=== PATIENT | female | born 1945 | race Caucasian/White ===

== ENCOUNTER 2016-05-27 17:30 | Emergency (ER) | payer MEDICARE ==
[~2016-05-27] VITALS: Ht 152.4 cm; Wt 103.0 kg
[~2016-05-27 17:30] MED LIST: ALPR-138 PO
[2016-05-27 17:36] VITALS: BP 149/54; PULSE 160; RESP 18; TEMP 97.6; O2SAT 98
[2016-05-27] MEDS ORDERED: SODIUM CHLORIDE 0.9% FLUSH 5 ML FLUSH IVF PRN (18:00)
[2016-05-27 18:01] VITALS: BP 139/67; PULSE 110; RESP 15; O2SAT 100
[2016-05-27] MEDS ORDERED: LEVO.05 PO (18:03)
[2016-05-27] MEDS ORDERED: chemotherapy PO (18:03)
[2016-05-27] MEDS ORDERED: ADVA250A INH (18:03)
--- NOTE | 2016-05-27 18:20 | RADRPT ---
EXAM DATE/TIME: 05/27/2016 18:07 [facility] COMPARISON: No previous studies available for comparison. INDICATIONS : Chest pain. MEDICAL HISTORY : Multiple myeloma. Renal failure. Dialysis. SURGICAL HISTORY : Dialysis catheter. ENCOUNTER: Initial ACUITY: 1 day PAIN SCORE: 7/10 LOCATION: Bilateral chest FINDINGS: A single view of the chest demonstrates the lungs to be symmetrically aerated without evidence of mas s, infiltrate or effusion. The cardiomediastinal contours are unremarkable. Osseous structures are intact. Right-sided vascular tunnel catheter with tip in the SVC. CONCLUSION: No acute disease. Right-sided vascular tunnel catheter. Brent Conrad MD on May 27, 2016 at 18:18 Board Certified Radiologist. This report was verified electronically.
[2016-05-27 18:25] LABS: AUTOMATED NEUTROPHIL # 3.3 TH/MM3 (1.8-7.7); BASOPHIL % 0.2 % (0.0-2.0); EOSINOPHIL % 0.2 % (0.0-4.0); HEMATOCRIT 21.1 % (35.0-46.0); HEMO FLAGS DIFF FINAL; LYMPH % 3.5 % (9.0-44.0); LYMPHOCYTE # 0.1 TH/MM3 (1.0-4.8); MEAN CORPUSCULAR HEMOGLOBIN 30.9 PG (27.0-34.0); MEAN CORPUSCULAR HGB CONC 33.2 % (32.0-36.0); MONO % 10.9 % (0.0-8.0); NEUT % 85.2 % (16.0-70.0); PLATELET COUNT 103 TH/MM3 (150-450); RED BLOOD COUNT 2.27 MIL/MM3 (4.00-5.30); RED CELL DISTRIBUTION WIDTH 18.1 % (11.6-17.2); WHITE BLOOD COUNT 3.9 TH/MM3 (4.0-11.0)
[2016-05-27 18:43] LABS: BICARBONATE 20.5 MEQ/L (21.0-32.0); MAGNESIUM 2.4 MG/DL (1.5-2.5); POTASSIUM 4.2 MEQ/L (3.5-5.1)
--- NOTE | 2016-05-27 18:44 | PD ---
HPI Chief Complaint: fast heart rate Time Seen by Provider: 17:53 Travel History International Travel<30 days: No Contact w/Intl Traveler<30days: No Traveled to known affect area: No History of Present Illness HPI 71-year-old female states she has been feeling weak and having difficulty moving due to the weakness. She is sent here from dialysis. Her heart rate in triage was in the 160s by initial report. On the monitor she currently is 110. She denies other complaints other than generalized weakness. Quality is feeling tired all over. Severity is worsening. Duration is past couple of days. She states Dr. Taylor is her dyeing machine tender. She states Dr. White is her primary care physician. FORMERLY [facility], [facility] Past Medical History Asthma: Yes Cancer: Yes (mult. myeolomia) Chemotherapy: Yes (LAST WEEK) Dialysis: Yes (start 03/01) Diminished Hearing: No Respiratory: Yes (ASTHMA) Influenza Vaccination: No (allergic ) Menopausal: Yes : 3 Para: 2 Miscarriage: 1 : 0 Dilation and Curettage (D&C): Yes (X 2; &) Past Surgical History Tonsillectomy: Yes Other Surgery: Yes (CYST REMOVED FROM NECK) Social History Alcohol Use: No Tobacco Use: No Substance Use: No Allergies-Medications (Allergen,Severity, Reaction): Coded Allergies: Egg Allergy (Verified Allergy, Severe, 05/05/16) Peanut Oil (Verified Allergy, Severe, 05/05/16) Aspirin (Verified Allergy, Intermediate, 05/05/16) Codeine (Verified Allergy, Intermediate, 05/05/16) Penicillin (Verified Allergy, Intermediate, 05/05/16) Shellfish (Verified Allergy, Intermediate, 05/05/16) Sulfa (Verified Allergy, Intermediate, 05/05/16) Reported Meds & Prescriptions Reported Meds & Active Scripts Active Reported [chemotherapy] 1 Tab PO DAILY Synthroid (Levothyroxine Sodium) 50 Mcg Tab 50 Mcg PO DAILY Advair Diskus Inh (Fluticasone-Salmeterol Inh) 250-50 Mcg/Blist Aer 1 Puff INH BID Rinse mouth after use. Review of Systems Except as stated in HPI: all other systems reviewed are Neg Physical Exam Narrative GENERAL: Well-nourished, well-developed patient. SKIN: Warm and dry. HEAD: Normocephalic and atraumatic. EYES: No injection or drainage. ENT: No nasal drainage noted. NECK: Supple, trachea midline. CARDIOVASCULAR: Tachycardic rate and regular rhythm RESPIRATORY: No increased effort. No accessory muscle use. GASTROINTESTINAL: Abdomen soft, non-tender, nondistended. EXTREMITIES: No edema. NEUROLOGICAL: Awake and alert. Moves all extremities. Normal speech. Data Data Last Documented VS Vital Signs Date Time Temp Pulse Resp B/P Pulse Ox O2 Delivery O2 Flow Rate FiO2 05/27/16 18:01 110 15 139/67 100 Room Air 05/27/16 17:36 97.6 Orders Electrocardiogram (05/27/16 17:57) Basic Metabolic Panel (Bmp) (05/27/16 17:57) Ckmb (Isoenzyme) Profile (05/27/16 17:57) Complete Blood Count With Diff (05/27/16 17:57) Magnesium (Mg) (05/27/16 17:57) Prothrombin Time / Inr (Pt) (05/27/16 17:57) Act Partial Throm Time (Ptt) (05/27/16 17:57) Troponin I (05/27/16 17:57) Chest, Single Ap (05/27/16 17:57) Ecg Monitoring (05/27/16 17:57) Bilateral Bp Monitoring (05/27/16 17:57) Iv Access Insert/Monitor (05/27/16 17:57) Oximetry (05/27/16 17:57) Sodium Chloride 0.9% Flush (Ns Flush) (05/27/16 18:00) Red Blood Cells (Rbc) (05/27/16 18:38) Sodium Chlor 0.9% 250 Ml Inj (Ns 250 Ml (05/27/16 18:45) Type And Screen (05/27/16 18:38) CKMB (05/27/16 18:15) CKMB% (05/27/16 18:15) Labs Laboratory Tests Test 05/27/16 18:15 White Blood Count 3.9 TH/MM3 Red Blood Count 2.27 MIL/MM3 Hemoglobin 7.0 GM/DL Hematocrit 21.1 % Mean Corpuscular Volume 93.0 FL Mean Corpuscular Hemoglobin 30.9 PG Mean Corpuscular Hemoglobin 33.2 % Concent Red Cell Distribution Width 18.1 % Platelet Count 103 TH/MM3 Mean Platelet Volume 10.1 FL Neutrophils (%) (Auto) 85.2 % Lymphocytes (%) (Auto) 3.5 % Monocytes (%) (Auto) 10.9 % Eosinophils (%) (Auto) 0.2 % Basophils (%) (Auto) 0.2 % Neutrophils # (Auto) 3.3 TH/MM3 Lymphocytes # (Auto) 0.1 TH/MM3 Monocytes # (Auto) 0.4 TH/MM3 Eosinophils # (Auto) 0.0 TH/MM3 Basophils # (Auto) 0.0 TH/MM3 CBC Comment DIFF FINAL Differential Comment Prothrombin Time 10.7 SEC Prothromb Time International 1.0 RATIO Ratio Activated Partial 24.7 SEC Thromboplast Time Sodium Level 141 MEQ/L Potassium Level 4.2 MEQ/L Chloride Level 107 MEQ/L Carbon Dioxide Level 20.5 MEQ/L Anion Gap 14 MEQ/L Blood Urea Nitrogen 116 MG/DL Creatinine 5.65 MG/DL Estimat Glomerular Filtration 7 ML/MIN Rate Random Glucose 97 MG/DL Calcium Level 8.3 MG/DL Magnesium Level 2.4 MG/DL Total Creatine Kinase 194 U/L Troponin I 0.05 NG/ML [facility] Medical Decision Making Medical Screen Exam Complete: Yes Emergency Medical Condition: Yes Medical Record Reviewed: Yes (past history confirmed) Interpretation(s) CBC & BMP Diagram 05/27/16 18:15 Differential Diagnosis A. fib with RVR, SVT, anemia, renal failure, electrolyte abnormality..... Narrative Course Will check blood work, chest x-ray and reevaluate EKG is not atrial fibrillation it is sinus tachycardia and hemoglobin is 7.0. We'll discuss with her dyeing machine tender to coordinate transfusion. Patient denies any active bleeding but not wanting to stay dr hartley came to the ER and saw patient and she still is not willing to stay, nurse and friend at bedside patient is leaving AMA: The risks of leaving against medical advice without further evaluation treatment were discussed with the patient. These risks include cardiac dysfunction, cardiac dysrhythmia, possible heart attack, possible stroke or . The patient indicated understanding of these risks and appeared to have the capacity to make this decision alert and oriented 4. Physician Communication Physician Communication dr hartley agrees patient needs admit and transfusion with dialysis but patient told him she is leaving ama Diagnosis Primary Impression: Anemia Qualified Code: D64.9 - Anemia, unspecified type Additional Impression: Fluid overload Qualified Code: E87.70 - Hypervolemia, unspecified hypervolemia type Disposition: 07 AGAINST MEDICAL ADVICE Condition: Marta Rosas MD May 27, 2016 18:44
[2016-05-27] MEDS ORDERED: SODIUM CHLOR 0.9% 250 ML INJ 250 ML IV ONE (18:45)
[2016-05-27 18:50] LABS: APTT (PATIENT) 24.7 SEC (24.3-30.1); PROTHROMBIN TIME - PATIENT 10.7 SEC (9.8-11.6)
[2016-05-27 19:02] LABS: CKMB 15.4 NG/ML (0.5-3.6)
== END 2016-05-27 19:28 | disposition left against medical advice (07) ==
LOC: NEPE 17:30
DX: E87.70 Fluid overload, unspecified (principal); D64.9 Anemia, unspecified; J45.909 Unspecified asthma, uncomplicated; R53.1 Weakness; R00.0 Tachycardia, unspecified; C90.00 Multiple myeloma not having achieved remission; Z99.2 Dependence on renal dialysis
CPT/HCPCS: 71010; 80048; 82550; 82552; 83735; 84484; 85025; 85610; 85730

== ENCOUNTER → 2016-07-08 | Outpatient (CLI) | payer MEDICARE ==
[~2016-07-08] MED LIST changes: +ACYC1POW8; +ADVA250A INH; -ALPR-138 PO; +ALPR0.25 PO; +CYCL1CAP4 PO; +DEXA4TAB PO; +FURO1TAB60 PO; +KAYEPOW PO; +LACTCAP8 PO; +LEVO.05 PO; +ZOFR4TAB PO; +chemotherapy PO
[2016-07-08 10:44] LABS: HEMATOCRIT 33.2 % (35.0-46.0); MEAN CELL VOLUME 99.8 FL (80.0-100.0); MEAN CORPUSCULAR HEMOGLOBIN 32.7 PG (27.0-34.0); MEAN CORPUSCULAR HGB CONC 32.8 % (32.0-36.0); PLATELET COUNT 240 TH/MM3 (150-450); RED BLOOD COUNT 3.33 MIL/MM3 (4.00-5.30); RED CELL DISTRIBUTION WIDTH 20.4 % (11.6-17.2); REVIEW FLAG FINAL; WHITE BLOOD COUNT 5.9 TH/MM3 (4.0-11.0)
[2016-07-08 10:53] LABS: BICARBONATE 27.3 MEQ/L (21.0-32.0)
--- NOTE | 2016-07-08 11:47 | RADRPT ---
EXAM DATE/TIME: 07/08/2016 10:54 [facility] COMPARISON: CHEST SINGLE AP, May 27, 2016, 18:07. INDICATIONS : Evaluate for pneumonia, pneumothorax, or communicable disease. MEDICAL HISTORY : Renal insufficiency. Left arm AV fistula, hypotension, SURGICAL HISTORY : Port. ENCOUNTER: Initial ACUITY: 1 day PAIN SCORE: 0/10 LOCATION: Left chest FINDINGS: Right chest dialysis catheter is present in stable satisfactory position. The lungs remain hyperinfla neo but focally clear. No pleural effusion suspected. Cardiomediastinal contours are stable and [employer]. There is moderate accentuation of thoracic kyphosis and degenerative change noted in the spi ne. CONCLUSION: Stable chest appearance. No acute disease Corbin Summers MD on July 08, 2016 at 11:44 Board Certified Radiologist. This report was verified electronically.
--- NOTE | 2016-07-08 21:43 | EKG ---
Date Performed: 07/08/2016 Time Performed: 10:21:58 PTAGE: 71 years EKG: Sinus rhythm MARKED LEFT AXIS DEVIATION ABNORMAL ECG Compared to prior tracing no significant change DOCTOR: Mirtha Petersen Interpretating Date/Time 07/08/2016 21:41:45
== END ==
LOC: CPRE 09:52
PROVIDERS: ATTEND Surgery
DX: Z01.810 Encounter for preprocedural cardiovascular examination (principal); Z01.811 Encounter for preprocedural respiratory examination; Z01.812 Encounter for preprocedural laboratory examination
CPT/HCPCS: 36415; 71020; 80048; 85027; 93005

== ENCOUNTER → 2016-07-20 | Day surgery (SDC) | payer MEDICARE ==
[~2016-07-20] VITALS: Ht 154.9 cm; Wt 55.3 kg
[~2016-07-20] MED LIST changes: +BUPIVACAINE/EPINEPHRINE 0.25% PF 30 ML VIAL INFIL ONE; +FAMOTIDINE 20 MG/2 ML VIAL ONE; +GELFOAM SIZE 100 ONE; +HEPARIN SODIUM - IV 10,000 UNITS/10 ML VIAL ONE; +HEPARIN SODIUM - SQ 10,000 UNITS/ML VIAL ONE; +INSULIN HUMAN REGULAR 1,000 UNITS/10 ML VIAL SQ PRN; +LACTATED RINGER'S 1000 ML IV SCH; +METOPROLOL TARTRATE 25 MG TAB PO PRN; +MIDAZOLAM HCL 2 MG/2 ML VIAL ONE; +PROPOFOL 200 MG/20 ML AMP IV ONE; +PROTAMINE SULFATE 50 MG/5 ML VIAL ONE; +SODIUM CHLOR 0.9% 250 ML INJ 250 ML ONE; +SODIUM CHLORID 0.9% 500 ML IV SCH; +THROMBIN (TOPICAL) 5,000 UNIT VIAL ONE; +VANCOMYCIN HCL 1000 MG VIAL ONE; -chemotherapy PO; +fentaNYL CITRATE 250 MCG/5 ML AMP ONE
[2016-07-20 10:10] VITALS: BP 122/69; PULSE 102; RESP 16; TEMP 98.6; O2SAT 99
--- NOTE | 2016-07-20 13:45 | MP ---
cc: IGLESIA HAGEN DATE OF SURGERY: 07/20/2016 PREOPERATIVE DIAGNOSIS History of end-stage renal disease. POSTOPERATIVE DIAGNOSIS History of end-stage renal disease. PROCEDURE Left upper extremity proximal radiocephalic AV fistula creation. SURGEON Balwinder IV FLUIDS 500 cc. ANESTHESIA MAC and local, 20 cc of 0.25% Marcaine with epinephrine. ESTIMATED BLOOD LOSS Less than 50 cc. URINE OUTPUT Not calculated. COMPLICATIONS None. DISPOSITION To PACU. DETAILS OF PROCEDURE The patient's left upper extremity was prepped in a sterile fashion once under MAC anesthesia. The patient did get perioperative IV vancomycin because of an allergy to penicillin. I ultrasounded the patient's left upper extremity and found that the cephalic vein appeared to be the most appropriate vein for creation of AV fistula based on the diameter. The antecubital vein was close to the radial and ulnar bifurcation just below the antecubital fossae. I made an incision with a scalpel and electrocautery. I dissected down with Metzenbaum scissors and isolated the cephalic and antecubital vein. It should be noted that I marked the vein along its course with a dye marker. I tied off side branches with 2-0 and 3-0 silks and small and medium clips as needed. I isolated the brachial, radial and ulnar arteries. It should be noted that once I isolated the radial and ulnar artery just distal to their takeoff below the antecubital fossa in the brachial artery I then gave the patient 3000 units of heparin. I divided the antecubital vein. It should be noted that it did insufflate appropriately with injection. I used an 11 blade and Farooq scissors to make my arteriotomy in the proximal radial artery. I placed vessel loops around the ulnar and brachial artery and used a pediatric profunda clamp for distal control of the radial artery. I performed an anastomosis with 5-0 Prolene in a running continuous fashion. Afterwards I did use one 6-0 Prolene for the correction stitch. There was a good thrill in the cephalic vein. I did clip off two side branches as I mobilized it. It should be noted that afterwards the thrill improved slightly. The patient had a palpable radial artery distally and ulnar artery signal distally with a good signal in the palmar arch. I closed in layers with 2-0 Vicryl for 4-0 Monocryl with Dermabond. DO SHARMIN Puente /1:03 PM /1:32 PM
[2016-07-20 14:11] VITALS: BP 119/67; PULSE 93; RESP 16; TEMP 98.8; O2SAT 99
== END | disposition home or self-care (01) ==
LOC: HSDC 09:28
PROVIDERS: ATTEND Surgery
DX: N18.6 End stage renal disease (principal); J45.909 Unspecified asthma, uncomplicated; Z88.0 Allergy status to penicillin
CPT/HCPCS: 01844; 36818; 76937; 86850; 86900; 86901; J1644; J2250; J3010; J3370; J7040; J7050; J2720

== ENCOUNTER 2016-09-08 09:39 | Emergency (ER) | payer MEDICARE ==
[~2016-09-08] VITALS: Ht 154.9 cm; Wt 57.0 kg
[~2016-09-08 09:39] MED LIST changes: -ACYC1POW8; -ALPR0.25 PO; -BUPIVACAINE/EPINEPHRINE 0.25% PF 30 ML VIAL INFIL ONE; -CYCL1CAP4 PO; -DEXA4TAB PO; -FAMOTIDINE 20 MG/2 ML VIAL ONE; -FURO1TAB60 PO; -GELFOAM SIZE 100 ONE; -HEPARIN SODIUM - IV 10,000 UNITS/10 ML VIAL ONE; -HEPARIN SODIUM - SQ 10,000 UNITS/ML VIAL ONE; -INSULIN HUMAN REGULAR 1,000 UNITS/10 ML VIAL SQ PRN; -KAYEPOW PO; -LACTATED RINGER'S 1000 ML IV SCH; -LACTCAP8 PO; -METOPROLOL TARTRATE 25 MG TAB PO PRN; -MIDAZOLAM HCL 2 MG/2 ML VIAL ONE; -PROPOFOL 200 MG/20 ML AMP IV ONE; -PROTAMINE SULFATE 50 MG/5 ML VIAL ONE; -SODIUM CHLOR 0.9% 250 ML INJ 250 ML ONE; -SODIUM CHLORID 0.9% 500 ML IV SCH; -THROMBIN (TOPICAL) 5,000 UNIT VIAL ONE; -VANCOMYCIN HCL 1000 MG VIAL ONE; -ZOFR4TAB PO; -fentaNYL CITRATE 250 MCG/5 ML AMP ONE
[2016-09-08 09:44] VITALS: BP 181/85; PULSE 75; RESP 17; TEMP 98.2; O2SAT 99
[2016-09-08] MEDS ORDERED: ACYC1POW8 (10:02)
[2016-09-08] MEDS ORDERED: ALPR0.25 PO (10:02)
[2016-09-08] MEDS ORDERED: DEXA4TAB PO (10:02)
[2016-09-08] MEDS ORDERED: FURO1TAB60 PO (10:02)
[2016-09-08] MEDS ORDERED: CYCL1CAP4 PO (10:02)
[2016-09-08] MEDS ORDERED: ZOFR4TAB PO (10:04)
[2016-09-08] MEDS ORDERED: LACTCAP8 PO (10:04)
[2016-09-08] MEDS ORDERED: ACETAMINOPHEN 500 MG CPLT PO ONE (10:30)
[2016-09-08 10:46] LABS: BASOPHIL % 0.3 % (0.0-2.0); EOSINOPHIL % 0.2 % (0.0-4.0); HEMATOCRIT 37.5 % (35.0-46.0); HEMO FLAGS DIFF FINAL; LYMPH % 2.6 % (9.0-44.0); LYMPHOCYTE # 0.2 TH/MM3 (1.0-4.8); MEAN CELL VOLUME 105.4 FL (80.0-100.0); MEAN CORPUSCULAR HEMOGLOBIN 35.4 PG (27.0-34.0); MEAN CORPUSCULAR HGB CONC 33.6 % (32.0-36.0); MONO % 3.5 % (0.0-8.0); NEUT % 93.4 % (16.0-70.0); PLATELET COUNT 164 TH/MM3 (150-450); RED BLOOD COUNT 3.56 MIL/MM3 (4.00-5.30); RED CELL DISTRIBUTION WIDTH 17.9 % (11.6-17.2); WHITE BLOOD COUNT 8.5 TH/MM3 (4.0-11.0)
--- NOTE | 2016-09-08 10:57 | RADRPT ---
EXAM DATE/TIME: 09/08/2016 10:31 [facility] COMPARISON: No previous studies available for comparison. INDICATIONS : Back pain. Evaluate for renal stones. ORAL CONTRAST: No oral contrast ingested. RADIATION DOSE: 13.28 CTDIvol (mGy) MEDICAL HISTORY : Renal failure, chronic. Multiple myeloma. SURGICAL HISTORY : None. ENCOUNTER: Initial ACUITY: 2 days PAIN SCALE: 5/10 LOCATION: Right flank TECHNIQUE: Volumetric scanning of the abdomen and pelvis was performed. Using automated exposure control and ad justment of the mA and/or kV according to patient size, radiation dose was kept as low as reasonably achievable to obtain optimal diagnostic quality images. FINDINGS: LOWER LUNGS: The visualized lower lungs are clear. LIVER: Homogeneous density without lesion. There is no dilation of the biliary tree. No calcified gallston es. SPLEEN: Normal size without lesion. PANCREAS: Within normal limits. KIDNEYS: Normal in size and shape. There is no mass or hydronephrosis. There are multiple small bilateral rik al calculi. On the right there are at least 5 or 6 small 1-2 mm calculi. On the left there are is a s jatinder 3 mm area of calcification. The ureters are unremarkable. ADRENAL GLANDS: Within normal limits. VASCULAR: There is no aortic aneurysm. BOWEL/MESENTERY: The stomach, small bowel, and colon demonstrate no acute abnormality. There is no free intraperitone al air or fluid. ABDOMINAL WALL: Within normal limits. RETROPERITONEUM: There is no lymphadenopathy. BLADDER: No wall thickening or mass. REPRODUCTIVE: Within normal limits. INGUINAL: There is no lymphadenopathy or hernia. MUSCULOSKELETAL: Within normal limits for patient age. CONCLUSION: Multiple small bilateral nonobstructing renal calculi. Eddie Reeves MD on September 08, 2016 at 10:49 Board Certified Radiologist. This report was verified electronically.
[2016-09-08 11:02] LABS: ALT (GPT) 20 U/L (10-53); ANION GAP 14 MEQ/L (5-15); AST (GOT) 17 U/L (15-37); BICARBONATE 24.1 MEQ/L (21.0-32.0); BLOOD UREA NITROGEN 87 MG/DL (7-18); CHLORIDE 99 MEQ/L (98-107); POTASSIUM 6.3 MEQ/L (3.5-5.1); SODIUM (NA) 137 MEQ/L (136-145)
[2016-09-08 11:05] LABS: ALKALINE PHOSPHATASE 53 U/L (45-117); GLOMERULAR FILTRATION RATE 6 ML/MIN (>89); TOTAL BILIRUBIN ADULT 0.4 MG/DL (0.2-1.0)
[2016-09-08 11:13] VITALS: BP 187/81; PULSE 77; RESP 16; O2SAT 99
[2016-09-08 11:37] LABS: BACTERIA, URINE RARE /hpf; BLOOD, URINE TRACE (NEG); GLUCOSE,URINE NEG (NEG); KETONE, URINE NEG (NEG); NITRITE,URINE NEG (NEG); PH, URINE 6.5 (5.0-8.5); SQUAMOUS EPITHELIAL CELL URINE <1 /hpf (0-5); URINE COLOR LIGHT-YELLOW (YELLW/STRAW)
--- NOTE | 2016-09-08 11:37 | PD ---
HPI Chief Complaint: Back/ Neck Pain or Injury Time Seen by Provider: 10:02 Travel History International Travel<30 days: No Contact w/Intl Traveler<30days: No Traveled to known affect area: No History of Present Illness HPI This is a 71-year-old female who has a history of end-stage renal disease on dialysis who presents to the emergency department with right sided back pain, intermittent for several days and more severe today, sharp, with no associated vomiting, fevers, chills, hematuria or dysuria. She has had some diarrhea several days ago. She did not go to dialysis on Wednesday because of her diarrhea. She is due to go to dialysis at 2 PM today. PFSH Past Medical History Asthma: Yes Cancer: Yes (BLOOD) Cardiovascular Problems: No Chemotherapy: Yes (LAST WEEK) Diabetes: No Dialysis: Yes (start 03/01) Diminished Hearing: No Endocrine: No Genitourinary: No Hepatitis: No Hiatal Hernia: No Immune Disorder: No Musculoskeletal: Yes (LEG WEAKNESS) Neurologic: No Psychiatric: No Reproductive: No Respiratory: Yes (ASTHMA) Thyroid Disease: Yes Tetanus Vaccination: < 5 Years Influenza Vaccination: No ?: Not Menopausal: Yes : 3 Para: 2 Miscarriage: 1 : 0 Dilation and Curettage (D&C): Yes (X 2; &) Past Surgical History Abdominal Surgery: No AICD: No Body Medical Devices: PORT RIGHT SHOULDER Cardiac Surgery: No Ear Surgery: No Endocrine Surgery: No Eye Surgery: No Genitourinary Surgery: No Gynecologic Surgery: Yes (D&C) Joint Replacement: No Oral Surgery: Yes (TONSILS) Pacemaker: No Thoracic Surgery: Yes (PORT RIGHT SHOULDER) Tonsillectomy: Yes Other Surgery: Yes (CYST REMOVED FROM NECK) Social History Alcohol Use: No Tobacco Use: No Substance Use: No Allergies-Medications (Allergen,Severity, Reaction): Coded Allergies: Egg Allergy (Verified Allergy, Severe, 09/08/16) EGG ALBUMIN, PATIENT CAN EAT EGGS BUT CAN NOT HAVE FLU SHOT. Peanut Oil (Verified Allergy, Severe, 09/08/16) Aspirin (Verified Allergy, Intermediate, 09/08/16) Codeine (Verified Allergy, Intermediate, 09/08/16) Penicillin (Verified Allergy, Intermediate, 09/08/16) Shellfish (Verified Allergy, Intermediate, 09/08/16) Sulfa (Verified Allergy, Intermediate, 09/08/16) Reported Meds & Prescriptions Reported Meds & Active Scripts Active Reported Zofran (Ondansetron HCl) 4 Mg Tab 4 Mg PO Q8HR PRN Probiotic (Lactobacillus Acidophilus) 1 Cap Cap 1 Cap PO DAILY Acyclovir (Acyclovir (Bulk)) 1 Pow Pow 2 Cap Cyclophosphamide 50 Mg Cap 400 Mg PO WEEKLY Dexamethasone 4 Mg Tab 4 Mg PO DIRECTED Alprazolam 0.25 Mg Tab 0.25 Mg PO Q8H PRN Lasix (Furosemide) 40 Mg Tab 40 Mg PO DAILY Synthroid (Levothyroxine Sodium) 50 Mcg Tab 50 Mcg PO DAILY Advair Diskus Inh (Fluticasone-Salmeterol Inh) 250-50 Mcg/Blist Aer 1 Puff INH BID Rinse mouth after use. Review of Systems Except as stated in HPI: all other systems reviewed are Neg Physical Exam Narrative GENERAL: Pacing in the room. SKIN: Focused skin assessment warm and dry. HEAD: Atraumatic. Normocephalic. EYES: Pupils equal and round. No injection or drainage. ENT: Moist mucous membranes NECK: Trachea midline. CARDIOVASCULAR: Regular rate and rhythm. No murmur appreciated. RESPIRATORY: Clear to auscultation. Breath sounds equal bilaterally. GASTROINTESTINAL: Abdomen soft, tender to palpation in the right upper and right lower quadrants : Right CVA tenderness MUSCULOSKELETAL: No obvious deformities. NEUROLOGICAL: Awake and alert. No obvious cranial nerve deficits. Moving all extremities. PSYCHIATRIC: Appropriate mood and affect; insight and judgment normal. Data Data Last Documented VS Vital Signs Date Time Temp Pulse Resp B/P Pulse Ox O2 Delivery O2 Flow Rate FiO2 09/08/16 11:13 77 16 187/81 99 Room Air 09/08/16 09:44 98.2 Orders Complete Blood Count With Diff (09/08/16 10:18) Comprehensive Metabolic Panel (09/08/16 10:18) Urinalysis - C+S If Indicated (09/08/16 10:18) Acetaminophen (Tylenol) (09/08/16 10:30) Ct Abd/Pel W/O Iv Contrast (09/08/16 ) Labs Laboratory Tests Test 09/08/16 09/08/16 10:30 11:05 White Blood Count 8.5 TH/MM3 Red Blood Count 3.56 MIL/MM3 Hemoglobin 12.6 GM/DL Hematocrit 37.5 % Mean Corpuscular Volume 105.4 FL Mean Corpuscular Hemoglobin 35.4 PG Mean Corpuscular Hemoglobin 33.6 % Concent Red Cell Distribution Width 17.9 % Platelet Count 164 TH/MM3 Mean Platelet Volume 9.6 FL Neutrophils (%) (Auto) 93.4 % Lymphocytes (%) (Auto) 2.6 % Monocytes (%) (Auto) 3.5 % Eosinophils (%) (Auto) 0.2 % Basophils (%) (Auto) 0.3 % Neutrophils # (Auto) 8.0 TH/MM3 Lymphocytes # (Auto) 0.2 TH/MM3 Monocytes # (Auto) 0.3 TH/MM3 Eosinophils # (Auto) 0.0 TH/MM3 Basophils # (Auto) 0.0 TH/MM3 CBC Comment DIFF FINAL Differential Comment Sodium Level 137 MEQ/L Potassium Level 6.3 MEQ/L Chloride Level 99 MEQ/L Carbon Dioxide Level 24.1 MEQ/L Anion Gap 14 MEQ/L Blood Urea Nitrogen 87 MG/DL Creatinine 6.65 MG/DL Estimat Glomerular Filtration 6 ML/MIN Rate Random Glucose 115 MG/DL Calcium Level 8.6 MG/DL Total Bilirubin 0.4 MG/DL Aspartate Amino Transf 17 U/L (AST/SGOT) Alanine Aminotransferase 20 U/L (ALT/SGPT) Alkaline Phosphatase 53 U/L Total Protein 6.9 GM/DL Albumin 4.1 GM/DL Urine Color LIGHT-YELLOW Urine Turbidity CLEAR Urine pH 6.5 Urine Specific [place] 1.008 Urine Protein TRACE mg/dL Urine Glucose (UA) NEG mg/dL Urine Ketones NEG mg/dL Urine Occult Blood TRACE Urine Nitrite NEG Urine Bilirubin NEG Urine Urobilinogen LESS THAN 2.0 MG/DL Urine Leukocyte Esterase TRACE Urine RBC 1 /hpf Urine WBC 3 /hpf Urine Squamous Epithelial <1 /hpf Cells Urine Bacteria RARE /hpf Microscopic Urinalysis Comment CULT NOT INDICATED MDM Medical Decision Making Medical Screen Exam Complete: Yes Emergency Medical Condition: Yes Interpretation(s) Afebrile, hypertensive Macrocytosis 93% neutrophils Creatinine is 6.65 Potassium is 6.3 Urinalysis: No urinary tract infection Differential Diagnosis Kidney stone, cholelithiasis, cholecystitis, pyelonephritis Narrative Course This is a 71-year-old female who has a history of end-stage renal disease and multiple myeloma who presents to the emergency department with right sided flank pain. Her presentation is consistent with a kidney stone. Labs were obtained which are consistent with no dialysis for the past several days. Urinalysis is negative for blood. CT abdomen and pelvis demonstrates multiple small renal calculi within the kidneys but no stones in the ureter. Patient reports on reassessment after Tylenol that she's gone to the bathroom multiple times and she wonders if she may have passed a stone. Her pain is most consistent with nephrolithiasis. She feels much better. She is very hesitant to go to dialysis today because of her pain and she is afraid to sit in the dialysis chair. She says in the past her kidney doctor has prescribed her Kayexalate to good effect for a potassium of 6.3 and is brought it down to 5.1. I think this is reasonable as long as she goes to dialysis on Wednesday. I did explain to her that there is some risk and no guarantee that her Kayexalate will lower her potassium completely and she understands that risk. Patient will be discharged home with a single dose of Kayexalate and was told to return to the emergency department if her symptoms worsen. Diagnosis Primary Impression: Hyperkalemia Additional Impression: Nephrolithiasis Patient Instructions: General Instructions Additional Instructions: If you develop severe or worsening abdominal pain, fever>100.4, persistent vomiting or inability to eat or drink return to the emergency department immediately. It is very important that you follow up for dialysis on at your scheduled time. Med/Other Pt SpecificInfo: Prescription(s) given Scripts Sodium Polystyrene Sulfonate Liq (Kayexalate Liq)1 Pow Pow15 Gm PO DAILY 2 Days Ref 0 Prov:Zayda Nunez MD 09/08/16 Disposition: 01 DISCHARGE HOME Condition: Stable Zayda Nunez MD Sep 08, 2016 11:37
[2016-09-08 11:38] LABS: COMMENT (UR) CULT NOT INDICATED; CULTURE IF INDICATED CULT NOT INDICATED
[2016-09-08] MEDS ORDERED: KAYEPOW PO (11:46)
== END 2016-09-08 11:55 | disposition home or self-care (01) ==
LOC: NEPD 09:39
DX: E87.5 Hyperkalemia (principal); N20.0 Calculus of kidney
CPT/HCPCS: 74176; 80053; 81001; 85025

== ENCOUNTER 2016-12-11 20:42 | Emergency (ER) | payer MEDICARE ==
[~2016-12-11] VITALS: Ht 154.9 cm; Wt 61.5 kg
[~2016-12-11 20:42] MED LIST changes: +ACYC1POW8; +ALPR0.25 PO; +CYCL1CAP4 PO; +DEXA4TAB PO; +FURO1TAB60 PO; +KAYEPOW PO; +LACTCAP8 PO; +ZOFR4TAB PO
[2016-12-11 20:45] VITALS: BP 207/97; PULSE 121; RESP 20; TEMP 97.7; O2SAT 94
[2016-12-11 21:33] VITALS: BP 185/85; PULSE 112; RESP 29; O2SAT 94
--- NOTE | 2016-12-11 21:37 | PD ---
Physical Exam Date Seen by Provider: Dec 11, 2016 Time Seen by Provider: 21:35 Narrative 71 yo female that presents to the ED for eval of SOB. Has had cold like symptoms with cough for a week. SOB worsen the past few days. History of bronchial asthma all her life and has no inhalers at home. Here stating that she only needs a breathing treatment. She has Multiple Myeloma. She is currently taking adviar. Bad cough. Vitals are stable in triage. Awaiting bed placement. Data Data Last Documented VS Vital Signs Date Time Temp Pulse Resp B/P Pulse Ox O2 Delivery O2 Flow Rate FiO2 12/11/16 20:45 97.7 121 20 207/97 94 Room Air [facility] Medical Record Reviewed: Yes Supervised Visit with MARLENE: No González Haro Dec 11, 2016 21:37
[2016-12-11] MEDS ORDERED: SODIUM CHLORIDE 0.9% FLUSH 10 ML FLUSH IVF PRN (22:00)
[2016-12-11] MEDS ORDERED: methylPREDNISolone SOD SUCC 125 MG/2 ML VIAL IVP ONE (22:00)
[2016-12-11] MEDS ORDERED: KAYEPOW PO (22:01)
--- NOTE | 2016-12-11 22:03 | PD ---
HPI Chief Complaint: Respiratory Distress Time Seen by Provider: 21:58 Travel History International Travel<30 days: No Contact w/Intl Traveler<30days: No Traveled to known affect area: No History of Present Illness HPI 71-year-old female presents to the emergency department by private transportation the care of family for evaluation of shortness of breath. Patient has history of asthma and is undergoing chemotherapy for multiple myeloma as well as undergoes hemodialysis Tuesdays and Saturdays for renal failure. Patient states one week ago she started to develop a bronchitis and was started on Cipro and prednisone which she typically responds to well for symptomatic relief and resolution of bronchitis. Patient states symptoms have not improved. Patient states she is having issues with orthopnea. He should states yesterday during dialysis she going tolerated dialysis for one hour and it was stopped early. Patient is denying any fever in the last 48 hours although 5 days ago did have a temperature elevation times one responded to Tylenol and has had no further fever. Patient denies chills. Patient does not have productive cough. No report of hemoptysis. Patient denies any history of congestive heart failure. Patient is not experiencing any chest pain at this time and no pleuritic pain but does note with increasing shortness breast some tightness in her chest. Patient is prescribed Advair and does not use a rescue inhaler and does not have access to a home nebulizer. PFSH Past Medical History Asthma: Yes Cancer: Yes (BLOOD) Cardiovascular Problems: No Chemotherapy: Yes Diabetes: No Dialysis: Yes (start 03/01) Diminished Hearing: No Endocrine: No Gastrointestinal Disorders: No Genitourinary: No Hepatitis: No Hiatal Hernia: No Hypertension: No Immune Disorder: No Medical other: Yes (permacath, lt arm fistula) Musculoskeletal: Yes (LEG WEAKNESS) Neurologic: No Psychiatric: No Reproductive: No Respiratory: Yes Thyroid Disease: Yes ?: Not Menopausal: Yes : 3 Para: 2 Miscarriage: 1 : 0 Dilation and Curettage (D&C): Yes (X 2; &) Past Surgical History Abdominal Surgery: No AICD: No Body Medical Devices: PORT RIGHT SHOULDER Cardiac Surgery: No Ear Surgery: No Endocrine Surgery: No Eye Surgery: No Genitourinary Surgery: No Gynecologic Surgery: Yes (D&C) Joint Replacement: No Neurologic Surgery: No Oral Surgery: Yes (TONSILS) Pacemaker: No Thoracic Surgery: Yes (PORT RIGHT SHOULDER) Tonsillectomy: Yes Other Surgery: Yes (CYST REMOVED FROM NECK) Social History Alcohol Use: No Tobacco Use: No Substance Use: No Allergies-Medications (Allergen,Severity, Reaction): Coded Allergies: Egg Allergy (Verified Allergy, Severe, 09/08/16) EGG ALBUMIN, PATIENT CAN EAT EGGS BUT CAN NOT HAVE FLU SHOT. Peanut Oil (Verified Allergy, Severe, 09/08/16) Aspirin (Verified Allergy, Intermediate, 09/08/16) Codeine (Verified Allergy, Intermediate, 09/08/16) Penicillin (Verified Allergy, Intermediate, 09/08/16) Shellfish (Verified Allergy, Intermediate, 09/08/16) Sulfa (Verified Allergy, Intermediate, 09/08/16) Reported Meds & Prescriptions Reported Meds & Active Scripts Active Reported Kayexalate Liq (Sodium Polystyrene Sulfonate) 1 Pow Pow 15 Gm PO DIRECTED Probiotic (Lactobacillus Acidophilus) 1 Cap Cap 1 Cap PO DAILY Acyclovir (Acyclovir (Bulk)) 1 Pow Pow 2 Cap Cyclophosphamide 50 Mg Cap 400 Mg PO WEEKLY Dexamethasone 4 Mg Tab 4 Mg PO DIRECTED Alprazolam 0.25 Mg Tab 0.25 Mg PO Q8H PRN Lasix (Furosemide) 40 Mg Tab 40 Mg PO DAILY Synthroid (Levothyroxine Sodium) 50 Mcg Tab 50 Mcg PO DAILY Advair Diskus Inh (Fluticasone-Salmeterol Inh) 250-50 Mcg/Blist Aer 1 Puff INH BID Rinse mouth after use. Review of Systems Except as stated in HPI: all other systems reviewed are Neg Physical Exam Narrative GENERAL: Well-developed, nourished female in mild to moderate respiratory distress sitting upright in chair refuses to sit on exam bed SKIN: Warm and dry. HEAD: Normocephalic. EYES: No scleral icterus. No injection or drainage. NECK: Supple, trachea midline. No JVD or lymphadenopathy. CARDIOVASCULAR: Increased Regular rate and rhythm without murmurs, gallops, or rubs. RESPIRATORY: Breath sounds equal bilaterally diminished breath sounds with expiratory wheezing. No accessory muscle use. GASTROINTESTINAL: Abdomen soft, non-tender, nondistended. MUSCULOSKELETAL: No cyanosis, or edema. BACK: Nontender without obvious deformity. No CVA tenderness. Data Data Last Documented VS Vital Signs Date Time Temp Pulse Resp B/P Pulse Ox O2 Delivery O2 Flow Rate FiO2 12/11/16 22:37 98 Nasal Cannula 2 12/11/16 22:37 104 12/11/16 22:36 18 162/76 12/11/16 20:45 97.7 Orders Complete Blood Count With Diff (12/11/16 21:58) Basic Metabolic Panel (Bmp) (12/11/16 21:58) B-Type Natriuretic Peptide (12/11/16 21:58) Act Partial Throm Time (Ptt) (12/11/16 21:58) Prothrombin Time / Inr (Pt) (12/11/16 21:58) Magnesium (Mg) (12/11/16 21:58) Ckmb (Isoenzyme) Profile (12/11/16 21:58) Troponin I (12/11/16 21:58) Blood Culture (12/11/16 21:58) Iv Access Insert/Monitor (12/11/16 21:58) Electrocardiogram (12/11/16 21:58) Ecg Monitoring (12/11/16 21:58) Oximetry (12/11/16 21:58) Oxygen Administration (12/11/16 21:58) Chest, Single Ap (12/11/16 21:58) Sodium Chloride 0.9% Flush (Ns Flush) (12/11/16 22:00) Methylprednisolone So Succ Inj (Solumedr (12/11/16 22:00) Albuterol-Ipratropium Neb (Duoneb Neb) (12/11/16 22:00) Lactic Acid (12/11/16 21:58) CKMB (12/11/16 22:10) CKMB% (12/11/16 22:10) Labs Laboratory Tests Test 12/11/16 12/11/16 22:10 22:15 White Blood Count 10.2 TH/MM3 Red Blood Count 3.13 MIL/MM3 Hemoglobin 11.0 GM/DL Hematocrit 32.7 % Mean Corpuscular Volume 104.4 FL Mean Corpuscular Hemoglobin 35.2 PG Mean Corpuscular Hemoglobin 33.7 % Concent Red Cell Distribution Width 15.0 % Platelet Count 132 TH/MM3 Mean Platelet Volume 8.2 FL Neutrophils (%) (Auto) 94.7 % Lymphocytes (%) (Auto) 1.3 % Monocytes (%) (Auto) 3.9 % Eosinophils (%) (Auto) 0.0 % Basophils (%) (Auto) 0.1 % Neutrophils # (Auto) 9.7 TH/MM3 Lymphocytes # (Auto) 0.1 TH/MM3 Monocytes # (Auto) 0.4 TH/MM3 Eosinophils # (Auto) 0.0 TH/MM3 Basophils # (Auto) 0.0 TH/MM3 CBC Comment DIFF FINAL Differential Comment Prothrombin Time 10.4 SEC Prothromb Time International 0.9 RATIO Ratio Activated Partial 24.4 SEC Thromboplast Time Sodium Level 141 MEQ/L Potassium Level 4.7 MEQ/L Chloride Level 106 MEQ/L Carbon Dioxide Level 22.1 MEQ/L Anion Gap 13 MEQ/L Blood Urea Nitrogen 88 MG/DL Creatinine 6.31 MG/DL Estimat Glomerular Filtration 7 ML/MIN Rate Random Glucose 162 MG/DL Calcium Level 8.8 MG/DL Magnesium Level 2.8 MG/DL Total Creatine Kinase 148 U/L Creatine Kinase MB 7.6 NG/ML Troponin I 0.04 NG/ML B-Type Natriuretic Peptide 125 PG/ML Lactic Acid Level 1.2 mmol/L MDM Medical Decision Making Medical Screen Exam Complete: Yes Emergency Medical Condition: Yes Medical Record Reviewed: Yes Interpretation(s) Troponin I 0.04, not elevated BMP: 125, minimally elevated Lactic acid: 1.2, not elevated Last Impressions Chest X-Ray 12/11/162157 Signed Impressions: Service Date/Time: Sunday, December 11, 2016 22:08 - CONCLUSION: 1. No acute findings. 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 Diagnosis Primary Impression: COPD exacerbation Referrals: Primary Care Physician call for appointment Patient Instructions: General Instructions Additional Instructions: Continue current medications as presently prescribed Follow-up with primary care provider/oncologist and flume ride operator as scheduled Return to the emergency department for any concerns or change in condition Use rescue inhaler as prescribed as needed Med/Other Pt SpecificInfo: No Change to Meds Disposition: 01 DISCHARGE HOME Condition: Stable Steff Garcia MD Dec 11, 2016 22:03
[2016-12-11 22:31] LABS: AUTOMATED NEUTROPHIL # 9.7 TH/MM3 (1.8-7.7); BASOPHIL % 0.1 % (0.0-2.0); HEMATOCRIT 32.7 % (35.0-46.0); HEMO FLAGS DIFF FINAL; LYMPH % 1.3 % (9.0-44.0); LYMPHOCYTE # 0.1 TH/MM3 (1.0-4.8); MEAN CELL VOLUME 104.4 FL (80.0-100.0); MEAN CORPUSCULAR HEMOGLOBIN 35.2 PG (27.0-34.0); MEAN CORPUSCULAR HGB CONC 33.7 % (32.0-36.0); MONO % 3.9 % (0.0-8.0); NEUT % 94.7 % (16.0-70.0); PLATELET COUNT 132 TH/MM3 (150-450); RED BLOOD COUNT 3.13 MIL/MM3 (4.00-5.30); WHITE BLOOD COUNT 10.2 TH/MM3 (4.0-11.0)
[2016-12-11 22:36] VITALS: BP 162/76; PULSE 104; RESP 18; O2SAT 98
[2016-12-11 22:37] VITALS: PULSE 104; O2SAT 98
--- NOTE | 2016-12-11 22:37 | RADRPT ---
EXAM DATE/TIME: 12/11/2016 22:08 [facility] COMPARISON: CHEST SINGLE AP, May 27, 2016, 18:07. INDICATIONS : Shortness of breath and coughing. MEDICAL HISTORY : Bronchial asthma. SURGICAL HISTORY : Dialysis port. ENCOUNTER: Initial ACUITY: 1 week PAIN SCORE: 2/10 LOCATION: Bilateral chest FINDINGS: A single view of the chest demonstrates right dialysis port in right atrium. No focal consolidation o r effusion. Heart size normal. No pneumothorax. CONCLUSION: 1. No acute findings. Michi Hinkle MD on December 11, 2016 at 22:34 Board Certified Radiologist. This report was verified electronically.
[2016-12-11] MEDS: RESP: ALBUTEROL 2.5 MG/IPRATROPIUM 0.5 MG NEB (SCH) INH (22:40)
[2016-12-11 22:49] LABS: ANION GAP 13 MEQ/L (5-15); BICARBONATE 22.1 MEQ/L (21.0-32.0); BLOOD UREA NITROGEN 88 MG/DL (7-18); CHLORIDE 106 MEQ/L (98-107); GLOMERULAR FILTRATION RATE 7 ML/MIN (>89); MAGNESIUM 2.8 MG/DL (1.5-2.5); POTASSIUM 4.7 MEQ/L (3.5-5.1); SODIUM (NA) 141 MEQ/L (136-145)
[2016-12-11 22:53] LABS: CREATINE KINASE 148 U/L (26-192)
[2016-12-11 22:58] LABS: APTT (PATIENT) 24.4 SEC (24.3-30.1); INTERNATIONAL NORMALIZED RATIO 0.9 RATIO; PROTHROMBIN TIME - PATIENT 10.4 SEC (9.8-11.6)
[2016-12-11 23:05] LABS: CKMB 7.6 NG/ML (0.5-3.6)
== END 2016-12-12 00:04 | disposition home or self-care (01) ==
LOC: NEPC 20:42
DX: J44.1 Chronic obstructive pulmonary disease with (acute) exacerbation (principal); C90.00 Multiple myeloma not having achieved remission; Z79.899 Other long term (current) drug therapy
CPT/HCPCS: 71010; 80048; 82550; 82552; 83605; 83735; 83880; 84484; 85025; 85610; 85730; 87040; 94640; 94664; 96374; 99285; J2930